=== PATIENT | male | born 1970 | race Caucasian/White ===

== ENCOUNTER 2019-12-01 14:57 | Emergency (ER) | payer OTHER ==
[~2019-12-01] VITALS: Ht 180.3 cm; Wt 81.6 kg
[2019-12-01 15:24] VITALS: BP 136/73
[2019-12-01 15:28] VITALS: BP 136/73
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
[2019-12-01] MEDS ORDERED: TORADOL IV STA (15:46)
[2019-12-01] MEDS ORDERED: TORADOL ONE (15:51)
[2019-12-01 16:01] LABS: BASOPHIL # 0.1 10^3/uL (0.0-0.1); BASOPHIL % 0.6 % (0.0-0.2); EOSINOPHIL # 0.2 10^3/uL (0.0-0.2); EOSINOPHIL % 2.1 % (0.0-5.0); LYMPHOCYTES # 2.82 10^3/uL1 (1.0-4.8); LYMPHOCYTES % 31.6 % (24.0-44.0); MEAN CORP HGB 31.4 pg (26-34); MONOCYTES # 0.8 10^3/uL (0.3-0.8); MONOCYTES % 8.9 % (5.0-12.0); NEUTROPHIL # 5.1 10^3/uL (1.8-7.7); NEUTROPHILS % 56.7 % (41.0-85.0); PLATELET COUNT 332 10^3/uL (150-400); RED CELL DISTRIBUTION WIDTH 12.2 % (11.5-14.5)
--- NOTE | 2019-12-01 16:04 | PCM.EKG ---
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
--- NOTE | 2019-12-01 16:22 | NUR ---
CAT SCAN PATIENT TO CAT SCAN WITH RADIOLOGY STAFF.
[2019-12-01 16:32] LABS: ALANINE AMINOTRANSFERASE(ML) 30 U/L (12-78); ALKALINE PHOSPHATASE 58 U/L (50-136); ASPARTATE AMINO TRANSFERASE 17 U/L (0-35); CALCIUM 9.7 mg/dL (8.4-10.5); CARBON DIOXIDE 27.8 mmol/L (20.0-32); GLUCOSE 87 mg/dL (70-110)
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
--- NOTE | 2019-12-01 16:45 | NUR ---
CAT SCAN PATIENT BACK FROM CAT SCAN.
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
[2019-12-01 17:06] VITALS: BP 122/78
== END 2019-12-01 17:15 | disposition home or self-care (01) ==
LOC: ER 14:57
DX: S10.93XA Contusion of unspecified part of neck, initial encounter (principal); S00.93XA Contusion of unspecified part of head, initial encounter; S10.0XXA Contusion of throat, initial encounter; S30.0XXA Contusion of lower back and pelvis, initial encounter; V43.62XA Car passenger injured in collision with other type car in traffic accident, initial encounter; Y93.89 Activity, other specified; Y92.410 Unspecified street and highway as the place of occurrence of the external cause; Y99.8 Other external cause status
CPT/HCPCS: 36415; 70450; 71260; 72125; 72128; 72131; 80053; 82550; 82553; 84484; 85025; 85610; 85730; 93005; 96374; 99285; J1885; Q9965

== ENCOUNTER 2021-05-08 21:12 | Emergency (ER) | payer OTHER ==
[~2021-05-08] VITALS: Ht 180.3 cm; Wt 83.9 kg
--- NOTE | 2021-05-08 21:32 | NUR ---
Patient presents with C/O difficulty catching breath. Patient states, "Sometimes I feel like I'm unable to get a deep breath, so I kind of feel panicky. If I yawn or concentrate then I can get a deep breath and feel better. This just happens once in awhile and usually when I lay down for bed at night." Patient denies pain, alert, no signs of distress. Vital signs stable O2 100% on room air, respirations 18 and nonlabored. No other complaints at this time.
[2021-05-08 21:42] VITALS: BP 148/95
[2021-05-08 22:05] LABS: BASOPHIL % 0.3 % (0.0-0.2); EOSINOPHIL # 0.2 10^3/uL (0.0-0.2); EOSINOPHIL % 1.7 % (0.0-5.0); LYMPHOCYTES # 2.41 10^3/uL1 (1.0-4.8); LYMPHOCYTES % 23.8 % (24.0-44.0); MEAN CORP HGB 31.2 pg (26-34); MONOCYTES % 9.6 % (5.0-12.0); NEUTROPHIL # 6.5 10^3/uL (1.8-7.7); NEUTROPHILS % 64.3 % (41.0-85.0); PLATELET COUNT 328 10^3/uL (150-400); RED CELL DISTRIBUTION WIDTH 12.3 % (11.5-14.5)
[2021-05-08 22:27] LABS: ALANINE AMINOTRANSFERASE(ML) 29 U/L (12-78); ALKALINE PHOSPHATASE 62 U/L (50-136); ASPARTATE AMINO TRANSFERASE 18 U/L (0-35); CALCIUM 9.8 mg/dL (8.4-10.5); CARBON DIOXIDE 26.9 mmol/L (20.0-32); GLUCOSE 92 mg/dL (70-110)
--- NOTE | 2021-05-08 22:39 | PCM.EKG ---
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
--- NOTE | 2021-05-08 23:32 | ER.PDOC ---
General Chief Complaint: Dyspnea/Respdistress Stated Complaint: SOB Time seen by MD: 21:35 History of Present Illness Initial Comments 51 Y M 1 month of dyspnea, mainly at night when he is trying to sleep, has to sit up sometime, no hx of asthma or lung disease, never smoked, no chest pain, no leg edema, no unexplained weight gain Allergies: Coded Allergies: No Known Allergies (Unverified , 12/01/19) Home Meds No Active Prescriptions or Reported Meds Past Medical History Medical History: GERD Surgical History: no surgical history Social History Alcohol Use: occassionally Drug Use: none Review of Systems All Other Systems: Reviewed and Negative Physical Exam General Appearance: No Apparent Distress HEENT: Normal ENT Inspection Neck: Normal Inspection Respiratory: no respiratory distress Cardiovascular: Normal Peripheral Pulses, Regular Rate, Rhythm, No Edema, No JVD Gastrointestinal: Non Tender, Soft Extremities: Normal Inspection, No Pedal Edema Neurologic/Psychiatric: No Motor/Sensory Deficits Skin: Normal Color Lymphatic: No Adenopathy Results/Orders Results/Orders Orders - ISAEL HUMPHREY MD Cbc With Auto Diff (05/08/21 21:50) Comprehensive Metabolic Panel (05/08/21 21:50) 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 (05/08/21 21:50) Troponin I (05/08/21 21:50) PT (05/08/21 21:50) Ekg-Routine (05/08/21 21:50) Xr Chest 1v (05/08/21 21:50) Vital Signs Date Time Temp Pulse Resp B/P (MAP) Pulse Ox O2 Delivery O2 Flow Rate FiO2 05/08/21 21:42 98.3 81 18 05/08/21 21:42 98.3 81 18 148/95 (112) 100 Room Air 05/08/21 21:42 98.3 81 18 100 Laboratory Tests Test 05/08/21 22:00 White Blood Count 10.1 10^3/uL (4.5-11.0) Red Blood Count 4.71 10^6/uL (4.50-5.90) Hemoglobin 14.7 g/dL (13.9-16.3) Hematocrit 43.8 % (37.0-53.0) Mean Corpuscular Volume 93.0 fL (78-100) Mean Corpuscular Hemoglobin 31.2 pg (26-34) Mean Corpuscular Hemoglobin Concent 33.6 g/dL (33-36.5) Red Cell Distribution Width 12.3 % (11.5-14.5) Platelet Count 328 10^3/uL (150-400) Mean Platelet Volume 9.3 fL (7.8-11.0) Neutrophils (%) (Auto) 64.3 % (41.0-85.0) Lymphocytes (%) (Auto) 23.8 % (24.0-44.0) L Monocytes (%) (Auto) 9.6 % (5.0-12.0) Neutrophils # (Auto) 6.5 10^3/uL (1.8-7.7) Lymphocytes # (Auto) 2.41 10^3/uL1 (1.0-4.8) Monocytes # (Auto) 1.0 10^3/uL (0.3-0.8) H Absolute Immature Granulocyte (auto 0.03 10^3 u/L (0-2) Absolute Eosinophils (auto) 0.2 10^3/uL (0.0-0.2) Immature Granulocytes % 0.30 % (0.00-0.50) Eosinophils % 1.7 % (0.0-5.0) Basophils % 0.3 % (0.0-0.2) H Basophils # 0.0 10^3/uL (0.0-0.1) Prothrombin Time 10.2 SEC (9.6-12.0) Prothrombin Time INR (Non-Therap) 0.9 Sodium Level 139 mmol/L (132-145) Potassium Level 4.4 mmol/L (3.6-5.2) Chloride Level 103.0 mmol/L (96-109) Carbon Dioxide Level 26.9 mmol/L (20.0-32) Anion Gap 13.5 Blood Urea Nitrogen 12 mg/dL (7-18) Creatinine 1.20 mg/dL (0.59-1.40) Estimated GFR () 76.6 (>/=60) Est GFR (CKD-EPI)(Non-Afr [place]) 63.3 (>/=60) BUN/Creatinine Ratio 10.0 Glucose Level 92 mg/dL (70-110) Calcium Level 9.8 mg/dL (8.4-10.5) Total Bilirubin 0.4 mg/dL (0.2-1.0) Aspartate Amino Transferase (AST) 18 U/L (0-35) Alanine Aminotransferase (ALT) 29 U/L (12-78) Alkaline Phosphatase 62 U/L (50-136) Troponin I < 0.02 ng/mL (0.00-0.05) Pro-B-Type Natriuretic Peptide 51 pg/mL (0-125) Total Protein 8.6 g/dL (6.4-8.2) H Albumin 4.4 g/dL (3.4-5.0) Globulin 4.2 Albumin/Globulin Ratio 1.047 ER DEPART Departure Time of Disposition: 23:31 Disposition: 01 HOME / SELF CARE / HOMELESS Impression: Primary Impression: Dyspnea Condition: Improved Referrals: PCP,UNKNOWN (PCP) PRIMARY CARE PROVIDER Additional Instructions: You were seen and evaluted in the ED and had: Blood work, EKG Scripts No Active Prescriptions or Reported Meds Duration or Time Spent with Pa: [place] ISAEL HUMPHREY MD May 08, 2021 23:32
--- NOTE | 2021-05-08 23:58 | DIREP ---
PROCEDURE:CHEST 1 VIEW COMPARISON:None. INDICATIONS:sob FINDINGS: LUNGS/PLEURA:No significant pulmonary parenchymal abnormalities. No effusions. VASCULATURE:Normal. Unremarkable pulmonary vasculature. CARDIAC:Normal. No cardiac silhouette abnormality or cardiomegaly. MEDIASTINUM:Normal. No visible mass or adenopathy. BONES:Normal. No fracture or visible bony lesion. OTHER:Negative. CONCLUSION: No focal consolidation or edema. Dictated by: Ghulam Andrade MD on 05/08/2021 at 11:56 PM
== END 2021-05-08 23:40 | disposition home or self-care (01) ==
LOC: ER 21:12
DX: R06.00 Dyspnea, unspecified (principal); K21.9 Gastro-esophageal reflux disease without esophagitis
CPT/HCPCS: 36415; 71045; 80053; 83880; 84484; 85025; 85610; 93005; 99285

== ENCOUNTER 2025-01-11 15:02 | Emergency (ER) | payer OTHER ==
[~2025-01-11] VITALS: Ht 180.3 cm; Wt 86.2 kg
[2025-01-11 15:02] VITALS: BP 141/80; PULSE 83; RESP 18; TEMP 98.3; O2SAT 96
[2025-01-11] MEDS ORDERED: TORADOL ONE (15:19)
[2025-01-11] MEDS: TORADOL IM STA (15:22)
[2025-01-11] MEDS ORDERED: NAPR-824 PO (15:52)
[2025-01-11 15:55] VITALS: BP 129/84; PULSE 74; RESP 18; TEMP 98.3; O2SAT 96
== END 2025-01-11 15:58 | disposition home or self-care (01) ==
LOC: ER 15:02
DX: S46.911A Strain of unspecified muscle, fascia and tendon at shoulder and upper arm level, right arm, initial encounter (principal); K21.9 Gastro-esophageal reflux disease without esophagitis; X58.XXXA Exposure to other specified factors, initial encounter; Y93.H1 Activity, digging, shoveling and raking; Y92.89 Other specified places as the place of occurrence of the external cause; Y99.0 Civilian activity done for income or pay
CPT/HCPCS: 99283; 96372; 73030; J1885